=== PATIENT | female | born 1975 | race Caucasian/White ===

== ENCOUNTER 2016-12-12 04:06 | Emergency (ER) | payer BC ==
[~2016-12-12 04:06] MED LIST: CERTAGEN PO; CIPRO PO; DEXILANT; NEXIUM PO; PHENERGAN25 M1 PO; PRENATAL VITAMI1 TA3 PO; PRISTIQ; PRISTIQ50 MG PO; ZYRTEC; ZYRTEC PO
== END 2016-12-12 05:29 | disposition home or self-care (01) ==
LOC: SED 04:06
DX: M79.2 Neuralgia and neuritis, unspecified (principal); Z88.8 Allergy status to other drugs, medicaments and biological substances
CPT/HCPCS: 96372; 99283; J1170; J2550